=== PATIENT | male | born 1930 | race Caucasian/White ===

== ENCOUNTER → 2016-05-29 20:23 | Outpatient (CLI) | payer MEDICARE, BC | END | disposition home or self-care (01) | LOC: D.SLEEP 05-14 20:00 | DX: G47.30 Sleep apnea, unspecified (principal) ==

== ENCOUNTER → 2016-06-12 19:33 | Outpatient (CLI) | payer MEDICARE, BC | END | disposition home or self-care (01) | LOC: D.SLEEP 19:33 | DX: G47.30 Sleep apnea, unspecified (principal) ==

== ENCOUNTER → 2019-01-13 12:35 | Outpatient (CLI) | payer MEDICARE, BC | END | disposition home or self-care (01) | LOC: D.RAD 12:35 | PROVIDERS: ATTEND Clinical Nurse Specialist Adult Health | DX: R13.10 Dysphagia, unspecified (principal) ==